=== PATIENT | male | born 1980 | race Caucasian/White ===

== ENCOUNTER 2018-12-06 10:07 | Emergency (ER) | payer MEDICAID ==
[~2018-12-06] VITALS: Ht 175.3 cm; Wt 70.0 kg
[~2018-12-06 10:07] MED LIST: CHLO25CA10 PO
[2018-12-06] MEDS ORDERED: LORazepam 2 mg/ml vial IV ONE (11:45)
[2018-12-06] MEDS ORDERED: normal saline 1000ML IV soln IVB ONE (11:45)
[2018-12-06] MEDS ORDERED: chlordiazePOXIDE 25mg capsule PO ONE ×2 (11:45→13:10)
[2018-12-06 12:19] LABS: BASOPHILS % (AUTO) 0.5 % (0-1); EOSINOPHILS # (AUTO) 0.1 X10'3 (0-0.9); EOSINOPHILS % (AUTO) 1.7 % (0-6); HEMATOCRIT 44.4 % (42.0-52.0); HEMOGLOBIN 15.3 g/dl (14.0-17.9); LYMPHOCYTES # (AUTO) 0.9 X10'3 (1.1-4.8); LYMPHOCYTES % (AUTO) 26.2 % (21-51); MEAN CORPUSCULAR HEMOGLOBIN 34.6 PG (27.0-31.0); MEAN CORPUSCULAR HGB CONC 34.5 g/dL (33.0-36.5); MEAN CORPUSCULAR VOLUME 100.1 FL (78-98); MONOCYTES # (AUTO) 0.4 X10'3 (0-0.9); NEUTROPHILS # (AUTO) 2.2 X10'3 (1.8-7.7); NEUTROPHILS % (AUTO) 60.6 % (42-75); PLATELET COUNT 154 X10'3 (140-440); RED BLOOD COUNT 4.44 X10'6 (4.70-6.10); RED CELL DISTRIBUTION WIDTH 13.7 % (11.5-14.5); WHITE BLOOD COUNT 3.5 X10'3 (4.5-11.0)
[2018-12-06 12:22] LABS: PROTHROMBIN TIME 10.1 SECONDS (9.0-12.0)
[2018-12-06 12:25] LABS: ALANINE AMINOTRANSFERASE 71 U/L (12-78); ALBUMIN 4.2 G/DL (3.4-5.0); ALBUMIN/GLOBULIN RATIO 1.3 (1.1-1.5); ALKALINE PHOSPHATASE 60 IU/L (46-116); ANION GAP 10 (8-16); ASPARTATE AMINO TRANSFERASE 121 U/L (10-37); BILIRUBIN,TOTAL 0.4 MG/DL (0.1-1.0); BLOOD UREA NITROGEN 9 MG/DL (7-18); BUN/CREATININE RATIO 8.3 (5.4-32.0); CALCIUM 9.1 MG/DL (8.5-10.1); CHLORIDE 103 MMOL/L (99-107); CREATININE 1.09 MG/DL (0.60-1.10); ETHANOL 0.141 GM/DL (0.0-0.010); GLUCOSE 98 MG/DL (70-104); POTASSIUM 3.8 MMOL/L (3.5-5.1); SODIUM 141 MMOL/L (135-145); TOTAL CARBON DIOXIDE 28.1 MMOL/L (24-32); TOTAL PROTEIN 7.5 G/DL (6.4-8.2); eGFR 75 ML/MIN
[2018-12-06] MEDS ORDERED: CHLO25CA10 PO (13:09)
[2018-12-06] MEDS ORDERED: GABA-532 PO (13:09)
[2018-12-06 14:07] VITALS: BP 125/88
== END 2018-12-06 14:09 | disposition home or self-care (01) ==
LOC: ER 10:07
DX: F10.239 Alcohol dependence with withdrawal, unspecified (principal); G89.29 Other chronic pain; M54.9 Dorsalgia, unspecified; F17.200 Nicotine dependence, unspecified, uncomplicated; F12.90 Cannabis use, unspecified, uncomplicated; Z88.5 Allergy status to narcotic agent; Z88.8 Allergy status to other drugs, medicaments and biological substances
CPT/HCPCS: 36415; 71045; 80053; 80320; 85025; 85610; 96374; 99284; J2060; J7030

== ENCOUNTER 2019-03-10 18:57 | Emergency (ER) | payer MEDICAID ==
[~2019-03-10] VITALS: Ht 177.8 cm; Wt 63.0 kg
[~2019-03-10 18:57] MED LIST changes: +GABA-532 PO
[2019-03-10 19:18] VITALS: BP 134/91
== END 2019-03-10 22:26 | disposition left against medical advice (07) ==
LOC: ER 18:57
DX: M79.641 Pain in right hand (principal); Z53.21 Procedure and treatment not carried out due to patient leaving prior to being seen by health care provider; Z79.899 Other long term (current) drug therapy

== ENCOUNTER 2019-08-14 17:50 | Inpatient (IN) | payer MEDICAID ==
[~2019-08-14] VITALS: Ht 175.3 cm; Wt 72.0 kg
[2019-08-14 18:57] LABS: BASOPHILS # (AUTO) 0.1 X10'3 (0-0.2); BASOPHILS % (AUTO) 0.7 % (0-1); EOSINOPHILS # (AUTO) 0.1 X10'3 (0-0.9); EOSINOPHILS % (AUTO) 0.6 % (0-6); HEMATOCRIT 40.2 % (42.0-52.0); HEMOGLOBIN 14.3 g/dl (14.0-17.9); LYMPHOCYTES # (AUTO) 0.9 X10'3 (1.1-4.8); LYMPHOCYTES % (AUTO) 5.1 % (21-51); MEAN CORPUSCULAR HEMOGLOBIN 35.7 PG (27.0-31.0); MEAN CORPUSCULAR HGB CONC 35.6 g/dL (33.0-36.5); MEAN CORPUSCULAR VOLUME 100.3 FL (78-98); MEAN PLATELET VOLUME 7.2 FL (7.4-10.4); MONOCYTES # (AUTO) 1.2 X10'3 (0-0.9); MONOCYTES % (AUTO) 6.8 % (2-12); NEUTROPHILS # (AUTO) 14.8 X10'3 (1.8-7.7); NEUTROPHILS % (AUTO) 86.8 % (42-75); PLATELET COUNT 222 X10'3 (140-440); RED CELL DISTRIBUTION WIDTH 13.1 % (11.5-14.5); WHITE BLOOD COUNT 17.1 X10'3 (4.5-11.0)
[2019-08-14 19:09] LABS: ALANINE AMINOTRANSFERASE 53 U/L (12-78); ALBUMIN 3.5 G/DL (3.4-5.0); ALBUMIN/GLOBULIN RATIO 0.7 (1.1-1.5); ALKALINE PHOSPHATASE 98 IU/L (46-116); ANION GAP 8 (8-16); ASPARTATE AMINO TRANSFERASE 63 U/L (10-37); BILIRUBIN,TOTAL 0.4 MG/DL (0.1-1.0); BLOOD UREA NITROGEN 9 MG/DL (7-18); CHLORIDE 99 MMOL/L (99-107); GLUCOSE 99 MG/DL (70-104); POTASSIUM 3.4 MMOL/L (3.5-5.1); SODIUM 138 MMOL/L (135-145); TOTAL CARBON DIOXIDE 31.2 MMOL/L (24-32); TOTAL PROTEIN 8.6 G/DL (6.4-8.2); eGFR > 90 ML/MIN
[2019-08-14 19:11] LABS: PARTIAL THROMBOPLASTIN TIME 29 SECONDS (22-32)
[2019-08-14 20:12] LABS: CLARITY,URINE CLEAR (Clear); COLOR,URINE YELLOW (Yellow); GLUCOSE, URINE NEGATIVE (Neg); KETONES,URINE NEGATIVE (Neg); LEUKOCYTE ESTERASE ,URINE NEGATIVE (Neg); NITRITES, URINE NEGATIVE (Neg); OCCULT BLOOD,URINE SMALL (Neg); PROTEIN,URINE 30 mg/dl (Neg); UROBILINOGEN,URINE 0.2 E.U/dL (0.2-1.0)
[2019-08-14] MEDS ORDERED: NO HOME MEDS (20:14)
[2019-08-14 20:20] LABS: UA COLLECTION TYPE CLN CATCH MIDSTREAM
[2019-08-14] MEDS ORDERED: vancomycin/NS 1 GM ADD-VANTAGE 250 ML IV ONE (20:20)
[2019-08-14] MEDS ORDERED: piperacillin/tazo 3.375gm/50ml 50 ML IV ONE (20:20)
[2019-08-14] MEDS ORDERED: normal saline 1000ML IV soln IV ONE (20:20)
[2019-08-14 20:21] LABS: BACTERIA,URINE FEW /HPF (Neg); RBC,URINE 0-2 /HPF (0-2); SQUAMOUS EPITHELIAL CELL,UR FEW /LPF (FEW); WBC,URINE NONE SEEN /HPF (0-4)
[2019-08-14] MEDS ORDERED: LORazepam 2 mg/ml vial IV ONE (22:00)
--- NOTE | 2019-08-14 22:31 | NUR ---
Dr. Reyes is at the bedside with the patient.
[2019-08-14] MEDS ORDERED: mag hydrox/Alum hydrox/simeth 30ml oral suspension PO PRN (22:50)
[2019-08-14] MEDS ORDERED: thiamine inj. 100 MG in normal saline 100ml IV soln 100 ML IV ONE (22:50)
[2019-08-14] MEDS ORDERED: HYDROcodone/acetaminophen 5mg/325mg tablet PO PRN (22:50)
[2019-08-14] MEDS ORDERED: magnesium hydroxide 30ml (MOM) UD suspension PO PRN (22:50)
[2019-08-14] MEDS ORDERED: acetaminophen 325mg tablet PO PRN (22:50)
[2019-08-14] MEDS ORDERED: ondansetron/PF 4mg/2ml inj IV PRN (22:50)
[2019-08-14] MEDS ORDERED: thiamine 100mg/ml 2ml inj. IV ONE (22:55)
[2019-08-14] MEDS: normal saline 1000ml 1,000 ML IV SCH ×2 (23:04→23:53)
--- NOTE | 2019-08-14 23:35 | NUR ---
Received report from Miller CARR. Will assume patient care.
[2019-08-14 23:50] VITALS: BP 150/94
[2019-08-15] MEDS: piperacillin/tazo 3.375gm/50ml 50 ML IV SCH ×3 (04:47→19:18)
[2019-08-15 05:13] LABS: BASOPHILS # (AUTO) 0.1 X10'3 (0-0.2); BASOPHILS % (AUTO) 0.5 % (0-1); EOSINOPHILS # (AUTO) 0.1 X10'3 (0-0.9); EOSINOPHILS % (AUTO) 1.1 % (0-6); HEMATOCRIT 35.7 % (42.0-52.0); HEMOGLOBIN 12.3 g/dl (14.0-17.9); LYMPHOCYTES # (AUTO) 0.9 X10'3 (1.1-4.8); LYMPHOCYTES % (AUTO) 7.5 % (21-51); MEAN CORPUSCULAR HGB CONC 34.4 g/dL (33.0-36.5); MEAN CORPUSCULAR VOLUME 101.9 FL (78-98); MEAN PLATELET VOLUME 7.7 FL (7.4-10.4); MONOCYTES # (AUTO) 1.2 X10'3 (0-0.9); MONOCYTES % (AUTO) 10.2 % (2-12); NEUTROPHILS # (AUTO) 9.4 X10'3 (1.8-7.7); NEUTROPHILS % (AUTO) 80.7 % (42-75); PLATELET COUNT 201 X10'3 (140-440); RED BLOOD COUNT 3.51 X10'6 (4.70-6.10); RED CELL DISTRIBUTION WIDTH 13.3 % (11.5-14.5); WHITE BLOOD COUNT 11.6 X10'3 (4.5-11.0)
[2019-08-15 05:50] LABS: ALANINE AMINOTRANSFERASE 48 U/L (12-78); ALBUMIN 2.7 G/DL (3.4-5.0); ALBUMIN/GLOBULIN RATIO 0.7 (1.1-1.5); ALKALINE PHOSPHATASE 85 IU/L (46-116); ANION GAP 7 (8-16); ASPARTATE AMINO TRANSFERASE 66 U/L (10-37); BILIRUBIN,TOTAL 0.5 MG/DL (0.1-1.0); BLOOD UREA NITROGEN 11 MG/DL (7-18); BUN/CREATININE RATIO 12.8 (5.4-32.0); CALCIUM 7.8 MG/DL (8.5-10.1); CHLORIDE 105 MMOL/L (99-107); CREATININE 0.86 MG/DL (0.60-1.10); GLUCOSE 94 MG/DL (70-104); POTASSIUM 3.8 MMOL/L (3.5-5.1); SODIUM 139 MMOL/L (135-145); TOTAL CARBON DIOXIDE 26.6 MMOL/L (24-32); TOTAL PROTEIN 6.6 G/DL (6.4-8.2); eGFR > 90 ML/MIN
[2019-08-15] MEDS ORDERED: vancomycin/NS 1 GM ADD-VANTAGE 250 ML IV SCH (06:00)
--- NOTE | 2019-08-15 06:26 | NUR ---
Problems reprioritized. Patient report given, questions answered & plan of care reviewed with Clay CARR.
--- NOTE | 2019-08-15 06:48 | NUR ---
Patient in room [facility]. I have received report from BRUNO OCASIO and had the opportunity to ask questions and assume patient care.
[2019-08-15 07:00] VITALS: BP 144/100
[2019-08-15] MEDS: heparin, porcine 5000 units/ml vial SQ SCH ×2 (07:24→19:18)
[2019-08-15] MEDS: LORazepam 2 mg/ml vial IV PRN ×5 (08:28→23:08)
[2019-08-15] MEDS: silver sulfadiazine cream 400gm jar TP SCH (10:12)
[2019-08-15] MEDS: normal saline 1000ml 1,000 ML IV SCH (11:29)
[2019-08-15] MEDS: vancomycin/NS 1 GM ADD-VANTAGE 250 ML IV SCH ×2 (11:40→21:12)
[2019-08-15 11:53] VITALS: BP 137/84
[2019-08-15] MEDS: nicotine 14mg patch - 24hr TD SCH (13:01)
--- NOTE | 2019-08-15 14:37 | NUR ---
WOUND INFECTION EDUCATION PROVIDED BY WOUND CARE 1. Patient instructed to call their primary doctor, or go the ED immediately if any of the following symptoms occur: * Increased pain in wound * Increase in drainage from the wound * Redness in the skin surrounding the wound * Warmth in the skin surrounding the wound * Bleeding from the wound * Temperature of 101 or greater 2. If any of these occur while in the hospital tell a nurse immediately. Addendum: 08/15/19 at 1437 by Alexandro Dolan RN Amended: Links added.
--- NOTE | 2019-08-15 18:09 | NUR ---
Problems reprioritized. Patient report given, questions answered & plan of care reviewed with BRUNO ARENAS.
[2019-08-15] MEDS ORDERED: VANCOMYCIN LEVEL IV ONE (19:30)
[2019-08-15 20:00] VITALS: BP 131/82
[2019-08-16 00:34] VITALS: BP 138/89
[2019-08-16] MEDS ORDERED: Melatonin 3mg tablet PO ONE (01:50)
[2019-08-16] MEDS: normal saline 1000ml 1,000 ML IV SCH ×4 (01:52→23:57)
[2019-08-16] MEDS: piperacillin/tazo 3.375gm/50ml 50 ML IV SCH ×3 (04:32→19:14)
[2019-08-16] MEDS: vancomycin/NS 1 GM ADD-VANTAGE 250 ML IV SCH (04:33)
--- NOTE | 2019-08-16 06:04 | NUR ---
Problems reprioritized. Patient report given, questions answered & plan of care reviewed with BRUNO Williamson.
[2019-08-16 06:15] LABS: BASOPHILS % (AUTO) 0.6 % (0-1); EOSINOPHILS # (AUTO) 0.1 X10'3 (0-0.9); HEMATOCRIT 35.5 % (42.0-52.0); HEMOGLOBIN 12.3 g/dl (14.0-17.9); LYMPHOCYTES # (AUTO) 1.1 X10'3 (1.1-4.8); LYMPHOCYTES % (AUTO) 17.2 % (21-51); MEAN CORPUSCULAR HEMOGLOBIN 35.6 PG (27.0-31.0); MEAN CORPUSCULAR HGB CONC 34.6 g/dL (33.0-36.5); MEAN CORPUSCULAR VOLUME 103.1 FL (78-98); MEAN PLATELET VOLUME 7.5 FL (7.4-10.4); MONOCYTES # (AUTO) 0.8 X10'3 (0-0.9); MONOCYTES % (AUTO) 11.6 % (2-12); NEUTROPHILS # (AUTO) 4.5 X10'3 (1.8-7.7); NEUTROPHILS % (AUTO) 68.6 % (42-75); PLATELET COUNT 226 X10'3 (140-440); RED BLOOD COUNT 3.45 X10'6 (4.70-6.10); RED CELL DISTRIBUTION WIDTH 13.3 % (11.5-14.5); WHITE BLOOD COUNT 6.6 X10'3 (4.5-11.0)
[2019-08-16 06:16] LABS: ALANINE AMINOTRANSFERASE 60 U/L (12-78); ALBUMIN 2.8 G/DL (3.4-5.0); ALBUMIN/GLOBULIN RATIO 0.7 (1.1-1.5); ALKALINE PHOSPHATASE 76 IU/L (46-116); ANION GAP 8 (8-16); ASPARTATE AMINO TRANSFERASE 70 U/L (10-37); BILIRUBIN,TOTAL 0.5 MG/DL (0.1-1.0); BLOOD UREA NITROGEN 10 MG/DL (7-18); BUN/CREATININE RATIO 10.3 (5.4-32.0); CALCIUM 8.6 MG/DL (8.5-10.1); CHLORIDE 103 MMOL/L (99-107); CREATININE 0.97 MG/DL (0.60-1.10); GLUCOSE 94 MG/DL (70-104); POTASSIUM 3.5 MMOL/L (3.5-5.1); SODIUM 138 MMOL/L (135-145); TOTAL CARBON DIOXIDE 27.4 MMOL/L (24-32); TOTAL PROTEIN 6.7 G/DL (6.4-8.2); eGFR 85 ML/MIN
--- NOTE | 2019-08-16 06:25 | NUR ---
Patient in room [facility]. I have received report from BRUNO Car and had the opportunity to ask questions and assume patient care.
[2019-08-16 07:00] VITALS: BP 156/109
[2019-08-16] MEDS: lactobacillus rhamnosus 10,000 MMU CELLS/CAPSULE PO SCH ×2 (08:10→19:14)
[2019-08-16] MEDS: nicotine 14mg patch - 24hr TD SCH (08:10)
[2019-08-16] MEDS: LORazepam 2 mg/ml vial IV PRN ×5 (08:10→21:00)
[2019-08-16] MEDS: heparin, porcine 5000 units/ml vial SQ SCH ×2 (08:11→19:14)
[2019-08-16] MEDS: silver sulfadiazine cream 400gm jar TP SCH (08:11)
[2019-08-16 11:00] VITALS: BP 133/96
[2019-08-16] MEDS: VANCOmycin 1250MG/NS 250ml Bag 250 ML IV SCH ×2 (12:27→20:49)
--- NOTE | 2019-08-16 14:25 | NUR ---
Ok to discontinue BG accu checks per Dr. Jay.
--- NOTE | 2019-08-16 18:20 | NUR ---
Patient in room [facility]. I have received report from BRUNO Williamson and had the opportunity to ask questions and assume patient care.
--- NOTE | 2019-08-16 18:51 | NUR ---
Problems reprioritized. Patient report given, questions answered & plan of care reviewed with BRUNO MILNER.
[2019-08-16 20:00] VITALS: BP 158/96
[2019-08-16] MEDS ORDERED: Melatonin 3mg tablet PO SCH (21:00)
[2019-08-16] MEDS ORDERED: LORazepam 1 MG tablet PO PRN (22:50)
[2019-08-16] MEDS ORDERED: LORazepam 2 mg/ml vial IV PRN (22:50)
[2019-08-17] VITALS: BP 143/89
[2019-08-17] MEDS: piperacillin/tazo 3.375gm/50ml 50 ML IV SCH (04:42)
[2019-08-17] MEDS: VANCOmycin 1250MG/NS 250ml Bag 250 ML IV SCH (04:42)
--- NOTE | 2019-08-17 06:20 | NUR ---
Problems reprioritized. Patient report given, questions answered & plan of care reviewed with BRUNO Tinajero.
[2019-08-17 06:29] LABS: BASOPHILS % (AUTO) 0.6 % (0-1); EOSINOPHILS # (AUTO) 0.1 X10'3 (0-0.9); EOSINOPHILS % (AUTO) 1.5 % (0-6); HEMATOCRIT 36.5 % (42.0-52.0); HEMOGLOBIN 12.6 g/dl (14.0-17.9); LYMPHOCYTES # (AUTO) 1.4 X10'3 (1.1-4.8); LYMPHOCYTES % (AUTO) 17.6 % (21-51); MEAN CORPUSCULAR HEMOGLOBIN 35.3 PG (27.0-31.0); MEAN CORPUSCULAR HGB CONC 34.6 g/dL (33.0-36.5); MEAN CORPUSCULAR VOLUME 102.1 FL (78-98); MEAN PLATELET VOLUME 7.6 FL (7.4-10.4); MONOCYTES # (AUTO) 0.9 X10'3 (0-0.9); MONOCYTES % (AUTO) 11.7 % (2-12); NEUTROPHILS # (AUTO) 5.3 X10'3 (1.8-7.7); NEUTROPHILS % (AUTO) 68.6 % (42-75); PLATELET COUNT 258 X10'3 (140-440); RED BLOOD COUNT 3.57 X10'6 (4.70-6.10); WHITE BLOOD COUNT 7.7 X10'3 (4.5-11.0)
[2019-08-17 06:44] LABS: ALANINE AMINOTRANSFERASE 61 U/L (12-78); ALBUMIN 2.9 G/DL (3.4-5.0); ALBUMIN/GLOBULIN RATIO 0.7 (1.1-1.5); ALKALINE PHOSPHATASE 82 IU/L (46-116); ANION GAP 7 (8-16); ASPARTATE AMINO TRANSFERASE 64 U/L (10-37); BILIRUBIN,TOTAL 0.6 MG/DL (0.1-1.0); BLOOD UREA NITROGEN 10 MG/DL (7-18); BUN/CREATININE RATIO 10.6 (5.4-32.0); CALCIUM 8.5 MG/DL (8.5-10.1); CHLORIDE 103 MMOL/L (99-107); CREATININE 0.94 MG/DL (0.60-1.10); GLUCOSE 90 MG/DL (70-104); POTASSIUM 3.4 MMOL/L (3.5-5.1); SODIUM 137 MMOL/L (135-145); TOTAL CARBON DIOXIDE 27.5 MMOL/L (24-32); eGFR 88 ML/MIN
[2019-08-17 07:00] VITALS: BP 142/93
--- NOTE | 2019-08-17 07:01 | NUR ---
Patient in room [facility]. I have received report from arti azul and had the opportunity to ask questions and assume patient care.
[2019-08-17] MEDS: lactobacillus rhamnosus 10,000 MMU CELLS/CAPSULE PO SCH (08:07)
[2019-08-17] MEDS: heparin, porcine 5000 units/ml vial SQ SCH (08:09)
[2019-08-17] MEDS: nicotine 14mg patch - 24hr TD SCH (08:09)
[2019-08-17] MEDS: silver sulfadiazine cream 400gm jar TP SCH (08:15)
--- NOTE | 2019-08-17 08:58 | NUR ---
PT WOULD LIKE TO LEAVE THE FLOOR TO SMOKE. EDUCTED PT ON HOSPITAL POLICY. HE STATES IF I AM NOT DC'D TODAY I WILL GO AMA. HE WAS PLEASANT ABOUT IT. JUST INFORMED ME OF HIS INTENTIONS.
--- NOTE | 2019-08-17 09:19 | NUR ---
WOUND CARE CURRENTLY AT BEDSIDE DOING BOTH DRESSING CHANGES
[2019-08-17] MEDS ORDERED: K and/or MAG REPLACEMENT MC SCH (09:40)
[2019-08-17] MEDS ORDERED: potassium CL 10mEq/100ml bag 100 ML IV PRN (09:40)
[2019-08-17] MEDS ORDERED: potassium Cl 20 mEq SR tablet PO PRN ×2 (09:40)
[2019-08-17] MEDS ORDERED: CLIN-90 PO (10:15)
--- NOTE | 2019-08-17 10:30 | NUR ---
Pt. discharged, paperwork reviewed, pt. verbalized understanding, pt. walked to front lobby.
--- NOTE | 2019-08-17 10:36 | NUR ---
PT POLITELY REFUSED DC PICS ON HIS WOUNDS. HE IS ANXIOUS TO GO OUTSIDE AND SMOKE.
--- NOTE | 2019-08-17 10:40 | NUR ---
PT HAD A K+ OF 3.4. HE REFUSED TO WAIT FOR MED TO BE AVAILABLE.
[2019-08-17] MEDS ORDERED: VANCOMYCIN LEVEL IV ONE (11:30)
[2019-08-18] MEDS ORDERED: LORazepam 1 MG tablet PO PRN (22:50)
== END 2019-08-17 10:35 | disposition home or self-care (01) | DRG 720 ==
LOC: ER 17:52 → ED HOLD 23:09 → SUR 3N 23:59
PROVIDERS: ADMIT Internal Medicine; ATTEND Family Medicine
DX: A41.9 Sepsis, unspecified organism (principal); L03.311 Cellulitis of abdominal wall; F10.239 Alcohol dependence with withdrawal, unspecified; F12.90 Cannabis use, unspecified, uncomplicated; Z72.0 Tobacco use
CPT/HCPCS: 36415; 71045; 74176; 80053; 80202; 81001; 82948; 83605; 84145; 85025; 85610; 85730; 87040; 87081; 96365; 96367; 96375; 99285; G0378; J1644; J2060; J2543; J3370; J3411; J7030

== ENCOUNTER 2019-12-21 15:36 | Observation (INO) | payer SELFPAY ==
[~2019-12-21 15:36] MED LIST changes: -CHLO25CA10 PO; +CLIN-97 PO; -GABA-532 PO
[2019-12-21] MEDS ORDERED: heparin 10,000 units/1 ML INJ IV ONE (16:50)
[2019-12-21] MEDS ORDERED: LORazepam 2 mg/ml vial IV ONE (16:50)
[2019-12-21] MEDS ORDERED: LORazepam 2 mg/ml vial IV PRN (17:00)
[2019-12-21] MEDS: morphine 10mg/ml inj. IV PRN ×2 (17:51→17:57)
--- NOTE | 2019-12-21 18:00 | NUR ---
Meds given stat for extubation to comfort care but did not save on computer. Witnessed by Karely DOLAN and Mara DONG both at bedside during administration all meds.
--- NOTE | 2019-12-21 19:00 | NUR ---
At 1632 at arrived to PACU room 2 by EMS. Pt transferred to PACU monitors, ART line zeroed. After team huddle, extubation begun at 1751, patient at 1810. Transferred to OR 1 for procedure.
== END 2019-12-21 18:10 | disposition expired ==
LOC: EEVIPCON 15:36 → PACU 15:36
PROVIDERS: ADMIT Internal Medicine Critical Care Medicine; ATTEND Internal Medicine Critical Care Medicine
DX: S06.5X9A Traumatic subdural hemorrhage with loss of consciousness of unspecified duration, initial encounter (principal); X58.XXXA Exposure to other specified factors, initial encounter; Y93.89 Activity, other specified; Y92.89 Other specified places as the place of occurrence of the external cause
CPT/HCPCS: 94002; 94760; 96374; 96375; G0378; J1644; J2060; J2270

== ENCOUNTER 2019-12-21 18:29 | Day surgery (SDC) | payer OTHER | END 2019-12-21 20:00 | disposition E DONOR | LOC: EEVIPCON → PACU OUT 18:29 | DX: Z52.6 Liver donor (principal); Z52.4 Kidney donor ==